=== PATIENT | male | born 1975 | race Caucasian/White ===

== ENCOUNTER 2021-05-04 21:48 | Emergency (ER) | payer SELFPAY ==
[2021-05-04 21:57] VITALS: BP 126/82; PULSE 70; RESP 18; TEMP 36.7; O2SAT 99; BMI 20.7
--- NOTE | 2021-05-04 23:00 | W.ED.EYEPROB ---
Documented by User: AFSHAN Daily 05/05/21 00:32 HPI - Eye Problem General: Chief complaint: Eye Problems Stated complaint: Foreign Object in Rt Eye Time Seen by Provider: 05/04/21 22:49 History of Present Illness: Patient is a 45-year-old male comes to the ED with foreign body in right eye. Earlier tonight patient was drilling a hole and some metal above him and a small piece fell down into right eye. He washed out right eye afterwards and was unable to get foreign body out. Patient says he is up-to-date on his tetanus. He rates his eye pain currently a 9 out of 10. Denies any vision changes. His eye is watering a lot and does cause some blurriness. Associated symptoms: Denies fever(s), headache(s), nausea, neck pain or vomiting Review of Systems Const: Denies: fever(s), chills or fatigue Eyes: Reports: eye discomfort (Metal foreign body in right eye) and other (Foreign body in right eye); Denies: change in vision ENMT: Denies: throat pain, odynophagia, nasal discharge or nasal congestion Card: Denies: chest pain, palpitations, edema, swelling of feet/ankles, dyspnea on exertion or orthopnea Resp: Denies: dyspnea, productive cough or non-productive cough GI: Denies: abdominal pain, nausea, vomiting, diarrhea, constipation or hematochezia : Denies: flank pain, difficulty urinating, dysuria or hematuria Musc: Denies: neck pain, back pain or extremity swelling Skin/Breast: Denies: rash or new lesions Neuro: Denies: headache(s), numbness in extremities or weakness in extremities PFS ED PFSH: Medical History No pertinent family history No pertinent past medical history Physical Exam Const: COMMON NORMALS: patient oriented x3, healthy appearing and alert GENERAL APPEARANCE: cooperative HENMT: COMMON NORMALS: normocephalic HEAD & SCALP: normocephalic MOUTH: Normal oral and palatal mucosa present THROAT: posterior oropharynx normal and uvula midline Eye: COMMON NORMALS: Equal, round and reactive pupils present CONJUNCTIVA: Yes conjunctival abnormal positive right conjunctival injection localized PUPIL: Yes Equal, round and reactive pupils present SLIT LAMP EXAM: Yes slit lamp exam performed with fluorescein OTHER: Small metal foreign body seen in right eye. Fluorescein dye exam done on right eye and no uptake was seen. Neck/C-Spine: COMMON NORMALS: supple GENERAL: Yes normal visual inspection Resp: COMMON NORMALS: normal respiratory effort, No retractions, No use of accessory muscles and clear to auscultation bilaterally AUSCULTATION: clear to auscultation bilaterally Cardio: COMMON NORMALS: regular rate, regular rhythm, S1 normal heart sound present, S2 normal heart sound present, No gallops present (Cardio), No clicks present (Cardio), No murmurs present (Cardio) and Peripheral pulses 2+ throughout RATE: regular rate RHYTHM: regular rhythm HEART SOUNDS: S1 normal heart sound present and S2 normal heart sound present PERIPHERAL PULSES: Peripheral pulses 2+ throughout GI: COMMON NORMALS: Normal to inspection, nondistended, normoactive bowel sounds present, Soft to palpation, non-tender and no masses PALPATION: Yes Soft to palpation : COMMON NORMALS: Yes no CVA tenderness BLADDER/KIDNEY EXAM: Yes no CVA tenderness Back/Pelvis: COMMON NORMALS: no CVA tenderness Extremity: COMMON NORMALS: normal to inspection Neuro: COMMON NORMALS: patient oriented x3 and moves all extremities SENSORIUM/ORIENTATION: Yes alert Skin: GENERAL SKIN EXAM: dry skin Course Vital Signs: Vital signs: Vital Signs Temperature 98.0 F 05/04/21 21:57 Pulse Rate 70 05/04/21 21:57 Respiratory Rate 16 05/05/21 00:14 Blood Pressure 126/82 05/04/21 21:57 Pulse Oximetry 99 05/04/21 21:57 MDM - Eye Problem Medical Decision Making Patient presents here with foreign body of his right I was able to get the piece of metal out did burn the piece of metal out along with most of the rest ring does have a residual rust ring spoke to Harlan CAVANAUGH of ophthalmology and he is going to see him tomorrow the next day will place him on erythromycin ointment. Discharge Plan Discharge Patient Disposition: Home Clinical Impression: Foreign body, eye Qualifiers: Encounter type: initial encounter Laterality: right Qualified Code(s): T15.91XA - Foreign body on external eye, part unspecified, right eye, initial encounter Condition: Stable Prescriptions: New erythromycin 5 mg/gram (0.5 %) ointment 1 applic ophthalmic (eye) BID Qty: 3.5 0RF Discharge Orders: Discharge ED (Routine); Ordered 05/05/21 Ordered By: Bryant Jones Referrals: Robles Vu MD [Physician] - 1-3 days Discharge Diet: Advance as tolerated Discharge Activity: Resume usual activity Patient Instructions: Eye Foreign Body (ED) Coding Level of Care Code ED Family And Divorce Legal Assistant for Chg Fwd Exam Comprehensive Documented by User: Bryant Jones MD 05/05/21 00:11 HPI - Eye Problem General: Chief complaint: Eye Problems Stated complaint: Foreign Object in Rt Eye Time Seen by Provider: 05/04/21 22:49 PFSH ED PFSH: Medical History No pertinent family history No pertinent past medical history Procedures FB Removal Eye Location: eye (R) Topical anesthetic used: tetracaine Foreign body: metal Evidence of corneal penetration: No Technique: electric boni Procedure performed under: direct visualization with magnification Post-procedure medication: ophthalmic antibiotic Patient tolerated procedure: well Complications: residual rust ring Course Vital Signs: Vital signs: Vital Signs Temperature 98.0 F 05/04/21 21:57 Pulse Rate 70 05/04/21 21:57 Respiratory Rate 16 05/05/21 00:14 Blood Pressure 126/82 05/04/21 21:57 Pulse Oximetry 99 05/04/21 21:57 MDM - Eye Problem Medical Decision Making Patient presents here with foreign body of his right I was able to get the piece of metal out did burn the piece of metal out along with most of the rest ring does have a residual rust ring spoke to Harlan CAVANAUGH of ophthalmology and he is going to see him tomorrow the next day will place him on erythromycin ointment. Discharge Plan Discharge Patient Disposition: Home Clinical Impression: Foreign body, eye Qualifiers: Encounter type: initial encounter Laterality: right Qualified Code(s): T15.91XA - Foreign body on external eye, part unspecified, right eye, initial encounter Condition: Stable Prescriptions: New erythromycin 5 mg/gram (0.5 %) ointment 1 applic ophthalmic (eye) BID Qty: 3.5 0RF Discharge Orders: Discharge ED (Routine); Ordered 05/05/21 Ordered By: Bryant Jones Referrals: Robles Vu MD [Physician] - 1-3 days Discharge Diet: Advance as tolerated Discharge Activity: Resume usual activity Patient Instructions: Eye Foreign Body (ED) Coding Level of Care Code ED Family And Divorce Legal Assistant for Chg Fwd Exam Comprehensive
[2021-05-04] MEDS: eye irrigation 30 mL Btl EYE-LEFT (23:42)
[2021-05-04] MEDS: tetracaine 0.5% Op Soln 4 mL Btl 1 DROP EYE-LEFT (23:43)
[2021-05-04] MEDS: fluorescein 1 mg Strip EYE-LEFT (23:43)
--- NOTE | 2021-05-04 23:43 | PC.NURSE ---
AFSHAN Webber in with pt examining the R EYE at this time and foreign object noted going to speak with Poguw about removing it.
[2021-05-05 00:14] VITALS: RESP 16
== END 2021-05-05 00:15 | disposition home or self-care (01) ==
PROVIDERS: Emergency Provider Emergency Medicine
DX: T15.91XA Foreign body on external eye, part unspecified, right eye, initial encounter (principal); X58.XXXA Exposure to other specified factors, initial encounter
CPT/HCPCS: 99283